=== PATIENT | male | born 1960 | race Caucasian/White ===

== ENCOUNTER → 2019-03-14 | Outpatient (CLI) | payer MEDICAID, SELFPAY | PROVIDERS: Family Provider Family Medicine; Visit Provider Internal Medicine Hematology & Oncology | DX: Z08 Encounter for follow-up examination after completed treatment for malignant neoplasm (principal); Z85.09 Personal history of malignant neoplasm of other digestive organs; R10.13 Epigastric pain; K74.0 Hepatic fibrosis; Z92.3 Personal history of irradiation; Z92.21 Personal history of antineoplastic chemotherapy; Z79.891 Long term (current) use of opiate analgesic | CPT/HCPCS: 80053; 85025; 99214 ==

== ENCOUNTER → 2019-04-03 13:00 | Outpatient (BNVA) | payer MEDICAID, SELFPAY | PROVIDERS: Family Provider Family Medicine; PCP Family Medicine; Visit Provider Anesthesiology Pain Medicine | DX: R10.13 Epigastric pain (principal); R10.9 Unspecified abdominal pain; F17.210 Nicotine dependence, cigarettes, uncomplicated | CPT/HCPCS: 99203; 99999 ==

== ENCOUNTER 2019-04-19 09:14 | Emergency (ER) | payer MEDICAID, SELFPAY ==
[2019-04-19] VITALS (10 sets, daily range): BP systolic 84–124; BP diastolic 45–82; PULSE 100–109; RESP 12–21; TEMP 36.8–37.3; O2SAT 96–100; BMI 19.2
--- NOTE | 2019-04-19 09:16 | ED_ITS ---
Entered by Tessy Stoll, acting as scribe for HPI - General Adult General: Chief complaint: General Medical Stated complaint: RESP DISTRESS POST CODE Time Seen by Provider: 04/19/19 09:16 Source: family and EMS Mode of arrival: EMS History of Present Illness: HPI narrative: 58-year-old male with a history of liver cancer was found down. Patient had temporary airway placed. He has had blood in his stool. Patient per family complained of some vomiting and chest pain before he went down. Here he is not responsive. Onset (ago): hour(s) (2 am) Severity: severe Relieving factors: none Exacerbating factors: none Associated symptoms: Reports short of breath and weakness (per mother) Treatments prior to arrival: other (EMS did CPR) Review of Systems General: Reports: ROS unobtainable due to mental status PFSH ED PFSH: Statuses (acute, chronic, etc) shown below reflect problem list status as previously entered and may not be historically accurate Medical History Abdominal pain, epigastric (Acute) Hx of malignant neoplasm of gallbladder (Acute) Malignant neoplasm of liver, not specified as primary or secondary (Acute) Surgical History Hx of resection of liver (Acute) 04/2018 S/P biliary surgery (Acute) BILE DUCT STENT 05/2018, 07/2018 REPLACED S/P cholecystectomy (Acute) 02/2018 [facility] Family History Denies family history of Diabetes Clotting disorder Dementia Hyperlipidemia Psychiatric illness Suicide Anesthesia complication Bleeding disorder Lung disease Hypertension Stroke Social History Smoking and tobacco status: current every day smoker cigarettes Packs smoked per day: 0.5 Years cigarettes smoked: 20 Alcohol intake: never Caregiver/support person: Yes Lives independently: Yes Household members: family Physical Exam Const: COMMON NORMALS: negative for alert EXAM LIMITATIONS: altered mental status GENERAL APPEARANCE: disheveled, ill appearing and frail appearing ORIENTATION/CONSCIOUSNESS: not oriented to person HENMT: COMMON NORMALS: normocephalic HEAD & SCALP: normocephalic Eye: COMMON NORMALS: PERRL PUPIL: Yes PERRL Neck/C-Spine: COMMON NORMALS: no lymphadenopathy and supple Chest: COMMONS NORMALS: inspection of chest normal and palpation of chest normal Resp: OTHER: not breathing on his own. has a supraglotic device in place Cardio: COMMON NORMALS: regular rate and regular rhythm RATE: regular rate RHYTHM: regular rhythm GI: COMMON NORMALS: normal to inspection, nondistended, normoactive bowel sounds, soft to palpation, non-tender and no hepatosplenomegaly PALPATION: Yes soft and Yes no hepatosplenomegaly : OTHER: rectal exam positive for blood Extremity: COMMON NORMALS: normal to inspection and full ROM Neuro: COMMON NORMALS: negative for moves all extremities SENSORIUM/ORIENTATION: No alert and No oriented to person Psych: COMMON NORMALS: negative for mental status grossly normal Skin: COMMON NORMALS: no rashes or lesions noted GENERAL SKIN EXAM: no rashes or lesions noted Procedures Intubation sedative: Etomidate Mg Given: 20 paralytic: Succinylcholine Mg Given: 100 Laryngoscope: fiber optic video scope ET Tube Size: 8 ET Tube Uncuffed: No Tube Secured Depth (cm): 25 Tube Secured Location: teeth Tube Placement Confirmation: visualized tube passing through cords, equal breath sounds bilaterally and confirmation by capnometry Patient Tolerated Procedure: well Intubation Complications: none Course Vital Signs: Vital signs: Vital Signs Temperature 98.8 F 04/19/19 11:13 Pulse Rate 100 04/19/19 11:13 Respiratory Rate 21 H 04/19/19 11:13 Blood Pressure 89/52 04/19/19 11:10 Pulse Oximetry 96 04/19/19 11:13 MDM - General Adult MDM Narrative: Medical decision making narrative: Patient presents here with upper GI bleed with anemia and hypotension likely from that. Patient also had respiratory failure I did intubate him in the ER. Patient's blood pressure here is improving after fluids and blood products. I spoke to [facility] and will transfer there for higher level of care as patient possibly has esophageal varices as well and needs GI as we do not have GI. Patient will stable for for transfer. Lab Data: Labs: Lab Results 04/19/19 04/19/19 04/19/19 Range/Units 09:22 09:22 09:22 WBC 11.5 H (4.0-10.0) 10^3/ uL RBC 1.73 L (4.1-5.3) 10^6/u L Hgb 5.8 L* (11.7-16.6) g/dL Hct 19.7 L* (42.0-52.0) % MCV 113.9 H (80-94) fL MCH 33.5 (28.0-34.0) pg MCHC 29.4 L (30.0-36.0) g/dL RDW 19.2 H (12.1-15.1) % Plt Count 249 (130-400) 10^3/c mm MPV 9.4 (7.4-10.4) fL Neut % (Auto) 78.3 % Lymph % (Auto) 9.4 % Mcnairy % (Auto) 5.3 % Eos % (Auto) 0.3 % Baso % (Auto) 0.2 % Neut # (Auto) 9.0 H (1.8-7.7) 10^3/u L Lymph # (Auto) 1.1 (0.8-4.8) 10^3/u L Mcnairy # (Auto) 0.6 (0.2-0.9) 10^3/u L Eos # (Auto) 0.0 (0.0-0.8) 10^3/u L Baso # (Auto) 0.0 (0.0-0.1) 10^3/u L Nucleated RBC % (a uto) 0.2 % Nucleated RBCs # 0.0 /100WBC PT 19.00 H (10.5-13.3) SECO NDS INR 1.54 H (0.8-1.2) Specimen Type Sample Site ABG pH (7.35-7.45) ABG pCO2 (35-45) mmHg ABG pO2 (80.0-100.0) mmH g ABG HCO3 (22-26) mmol/L Ervin Test Respiration Rate % O2 Delivery Device FiO2 % Tidal Volume PEEP cmH20 Industrial Hygenist ID Sodium 137 (136-145) mmol/L Potassium 4.5 (3.5-5.1) mmol/L Chloride 101 (98-107) mmol/L Carbon Dioxide 10 L (22-29) mmol/L Anion Gap 30.5 H (5-19) BUN 35 H (8-23) mg/dL Creatinine 1.0 (0.7-1.2) mg/dL GFR Calculation 76.2 L (90-130) mL/min Glucose 208 H (74-106) mg/dL Lactate (0.5-2.2) mmol/L Calcium 7.9 L (8.5-10.5) mg/dL Total Bilirubin 0.2 (0.15-1.2) mg/dL AST 107 H (0-40) U/L ALT 67 H (0-41) U/L Alkaline Phosphata se 201 H (40-130) IU/L Troponin T Baselin e (0-15) ng/mL NT-Pro-B Natriuret Pep 623 H (0-125) pg/mL Total Protein 3.3 L (6.6-8.7) g/dL Albumin 1.7 L (3.5-5.2) g/dL Globulin 1.6 (1.3-4.6) g/dL Urine Color (Yellow) Urine Appearance (CLEAR) Urine pH (5-7) Ur Specific Gravit y (1.005-1.030) Urine Protein (Negative) Urine Glucose (UA) (Normal) Urine Ketones (Negative) Urine Occult Blood (Negative) Urine Nitrate (Negative) Urine Bilirubin (NEGATIVE) Urine Urobilinogen (Negative) mg/dL Ur Leukocyte Nurys ase (Negative) Urine RBC (0-2) /hpf Urine WBC (0-5) /hpf Ur Squamous Epith Cells (0-5) Urine Bacteria (NONE) Urine Mucus Urine Opiates Scre en (Negative) ng/mL Ur Barbiturates Sc reen (Negative) ng/mL Ur Phencyclidine S crn (Negative) ng/mL Ur Amphetamines Sc reen (Negative) ng/mL U Benzodiazepines Scrn (Negative) ng/mL Urine Cocaine Scre en (Negative) ng/mL U Marijuana (THC) Screen (Negative) ng/mL Blood Type Antibody Screen Crossmatch 04/19/19 04/19/19 04/19/19 Range/Units 09:22 09:22 09:39 WBC (4.0-10.0) 10^3/ uL RBC (4.1-5.3) 10^6/u L Hgb (11.7-16.6) g/dL Hct (42.0-52.0) % MCV (80-94) fL MCH (28.0-34.0) pg MCHC (30.0-36.0) g/dL RDW (12.1-15.1) % Plt Count (130-400) 10^3/c mm MPV (7.4-10.4) fL Neut % (Auto) % Lymph % (Auto) % Mcnairy % (Auto) % Eos % (Auto) % Baso % (Auto) % Neut # (Auto) (1.8-7.7) 10^3/u L Lymph # (Auto) (0.8-4.8) 10^3/u L Mcnairy # (Auto) (0.2-0.9) 10^3/u L Eos # (Auto) (0.0-0.8) 10^3/u L Baso # (Auto) (0.0-0.1) 10^3/u L Nucleated RBC % (a uto) % Nucleated RBCs # /100WBC PT (10.5-13.3) SECO NDS INR (0.8-1.2) Specimen Type Sample Site ABG pH (7.35-7.45) ABG pCO2 (35-45) mmHg ABG pO2 (80.0-100.0) mmH g ABG HCO3 (22-26) mmol/L Ervin Test Respiration Rate % O2 Delivery Device FiO2 % Tidal Volume PEEP cmH20 Industrial Hygenist ID Sodium (136-145) mmol/L Potassium (3.5-5.1) mmol/L Chloride (98-107) mmol/L Carbon Dioxide (22-29) mmol/L Anion Gap (5-19) BUN (8-23) mg/dL Creatinine (0.7-1.2) mg/dL GFR Calculation (90-130) mL/min Glucose (74-106) mg/dL Lactate 16.8 H* (0.5-2.2) mmol/L Calcium (8.5-10.5) mg/dL Total Bilirubin (0.15-1.2) mg/dL AST (0-40) U/L ALT (0-41) U/L Alkaline Phosphata se (40-130) IU/L Troponin T Baselin e 25 H (0-15) ng/mL NT-Pro-B Natriuret Pep (0-125) pg/mL Total Protein (6.6-8.7) g/dL Albumin (3.5-5.2) g/dL Globulin (1.3-4.6) g/dL Urine Color (Yellow) Urine Appearance (CLEAR) Urine pH (5-7) Ur Specific Gravit y (1.005-1.030) Urine Protein (Negative) Urine Glucose (UA) (Normal) Urine Ketones (Negative) Urine Occult Blood (Negative) Urine Nitrate (Negative) Urine Bilirubin (NEGATIVE) Urine Urobilinogen (Negative) mg/dL Ur Leukocyte Nurys ase (Negative) Urine RBC (0-2) /hpf Urine WBC (0-5) /hpf Ur Squamous Epith Cells (0-5) Urine Bacteria (NONE) Urine Mucus Urine Opiates Scre en (Negative) ng/mL Ur Barbiturates Sc reen (Negative) ng/mL Ur Phencyclidine S crn (Negative) ng/mL Ur Amphetamines Sc reen (Negative) ng/mL U Benzodiazepines Scrn (Negative) ng/mL Urine Cocaine Scre en (Negative) ng/mL U Marijuana (THC) Screen (Negative) ng/mL Blood Type O Positive Antibody Screen Negative Crossmatch See Detail 04/19/19 04/19/19 04/19/19 Range/Units 09:43 09:45 09:45 WBC (4.0-10.0) 10^3/ uL RBC (4.1-5.3) 10^6/u L Hgb (11.7-16.6) g/dL Hct (42.0-52.0) % MCV (80-94) fL MCH (28.0-34.0) pg MCHC (30.0-36.0) g/dL RDW (12.1-15.1) % Plt Count (130-400) 10^3/c mm MPV (7.4-10.4) fL Neut % (Auto) % Lymph % (Auto) % Mcnairy % (Auto) % Eos % (Auto) % Baso % (Auto) % Neut # (Auto) (1.8-7.7) 10^3/u L Lymph # (Auto) (0.8-4.8) 10^3/u L Mcnairy # (Auto) (0.2-0.9) 10^3/u L Eos # (Auto) (0.0-0.8) 10^3/u L Baso # (Auto) (0.0-0.1) 10^3/u L Nucleated RBC % (a uto) % Nucleated RBCs # /100WBC PT (10.5-13.3) SECO NDS INR (0.8-1.2) Specimen Type Arterial Sample Site Brachial, right ABG pH 7.00 L* (7.35-7.45) ABG pCO2 23.1 L (35-45) mmHg ABG pO2 70.3 L (80.0-100.0) mmH g ABG HCO3 5.7 L (22-26) mmol/L Ervin Test N/a Respiration Rate 18.0 % O2 Delivery Device Vent FiO2 100.0 % Tidal Volume 0.4 PEEP 8.0 cmH20 Industrial Hygenist ID amh Sodium (136-145) mmol/L Potassium (3.5-5.1) mmol/L Chloride (98-107) mmol/L Carbon Dioxide (22-29) mmol/L Anion Gap (5-19) BUN (8-23) mg/dL Creatinine (0.7-1.2) mg/dL GFR Calculation (90-130) mL/min Glucose (74-106) mg/dL Lactate (0.5-2.2) mmol/L Calcium (8.5-10.5) mg/dL Total Bilirubin (0.15-1.2) mg/dL AST (0-40) U/L ALT (0-41) U/L Alkaline Phosphata se (40-130) IU/L Troponin T Baselin e (0-15) ng/mL NT-Pro-B Natriuret Pep (0-125) pg/mL Total Protein (6.6-8.7) g/dL Albumin (3.5-5.2) g/dL Globulin (1.3-4.6) g/dL Urine Color Yellow (Yellow) Urine Appearance Sl hazy (CLEAR) Urine pH 5.0 (5-7) Ur Specific Gravit y 1.015 (1.005-1.030) Urine Protein 1+ H (Negative) Urine Glucose (UA) Norm (Normal) Urine Ketones 1+ H (Negative) Urine Occult Blood 2+ H (Negative) Urine Nitrate Negative (Negative) Urine Bilirubin 1+ H (NEGATIVE) Urine Urobilinogen Norm (Negative) mg/dL Ur Leukocyte Nurys ase Negative (Negative) Urine RBC 10-15 H (0-2) /hpf Urine WBC 0-4 H (0-5) /hpf Ur Squamous Epith Cells 0-4 H (0-5) Urine Bacteria 2+ H (NONE) Urine Mucus Trace Urine Opiates Scre en Negative (Negative) ng/mL Ur Barbiturates Sc reen Negative (Negative) ng/mL Ur Phencyclidine S crn Negative (Negative) ng/mL Ur Amphetamines Sc reen Negative (Negative) ng/mL U Benzodiazepines Scrn Negative (Negative) ng/mL Urine Cocaine Scre en Negative (Negative) ng/mL U Marijuana (THC) Screen Positive H (Negative) ng/mL Blood Type Antibody Screen Crossmatch Critical Care Time Critical Care Time: Critical Care Time: Yes Total Critical Care Time: 35 Attestation: Critical care time was performed taking care of this patient. Patient was quite ill with massive GI bleed that required blood products. Patient required intubation as well had a monitor patient's blood pressures as he was hypotensive and monitor vent settings. Patient transferred to [facility] where I discussed case with physician over there for higher level of care for GI. Discharge Plan Discharge Patient Disposition: Xfer Other Clinical Impression: Hx of malignant neoplasm of gallbladder, Acute upper gastrointestinal bleeding, Anemia, Respiratory failure Condition: Stable Referrals: Navi Loja DO [Primary Care Provider] - Coding Level of Care Code ED Retail Administrative Assistant for Chg Fwd The documentation recorded by the Jerman werner Bridget Annette, accurately reflects the service I personally performed and the decisions made by me, Home Peterson MD Apr 19, 2019 09:14
--- NOTE | 2019-04-19 09:18 | CT_ITS ---
WS: [id number] CT scan of the chest for pulmonary embolus. Additional two-dimensional coronal and sagittal reconstru ction was performed. MIP images were also performed. 04/19/2019 Clinical Data: cp Comparison: CTA chest with abdomen and pelvis, 07/16/2018, MRI of the abdomen, 12/13/2018. DLP: 1228.[address] scans at [facility] use at least one of these dose optimization techniques: automat ed exposure control; mA and/or kV adjustment per patient size (includes targeted exams where dose is matched to clinical indication); or iterative reconstruction. Findings: The pulmonary arteries demonstrate no intraluminal filling defects. Both the central and peripheral a rteries are well filled. There is a nasogastric tube and endotracheal tube in good position. The heart size is normal. There is enlargement of the ascending aorta unchanged. No nodules or masses are seen. There is no axillary or mediastinal adenopathy. The bony thorax shows only moderate osteoa rthritic change with no metastatic bony lesions. CT abdomen and pelvis: FINDINGS: There is a cyst in the anterior aspect of the right lobe of the liver. There are other area s of the liver which represent lesions which have been treated. No new enhancing lesions in liver can be seen. The gallbladder is absent. There is a tube which extends from the liver to the duodenum. Th e pancreas and the adrenal glands are not remarkable. The spleen is normal. The left kidney is absent . The right kidney demonstrates normal enhancement with no cysts, masses or hydronephrosis. Abdominal aorta is normal. Stomach is dilated with an air-fluid level. The small bowel shows fluid within and moderate dilatation which can be seen with a severe generalized ileus or early small bowel obstructio n. The colon is not dilated but the wall is thickened and unchanged. There is a catheter within the b ladder. No metastatic lesions are seen in the lumbar spine, pelvis and hips. CT/CT angio chest w abd pel w con Impression: 1. Negative for pulmonary embolic disease. 2. Nasogastric tube and endotracheal tube in good position. IMPRESSION: 1. Dilated stomach with nasogastric tube. 2. Moderately dilated small bowel with fluid which could indicate diffuse small bowel disease and generalized ileus. 3. Enlarged colonic pearce which could be secondary to diffuse colitis. 4. Cyst of the liver and treated lesions of the liver remain unchanged. 5. Negative for abscess, adenopathy, ascites, mass, obstruction or free air. 6. Satisfactory position of nasogastric tube in the stomach and no change in po sition of tube extending from the liver to the duodenum.
--- NOTE | 2019-04-19 09:18 | XR_ITS ---
WS: [id number] Portable AP supine chest, 04/19/2019 Clinical Data: cp Comparison: None. Findings: The endotracheal tube is above the baljeet. The heart and lungs are unremarkable. The patien t is had an abdominal stent placed on the right which may extend from the liver to the small bowel. T here are also clips in the right upper quadrant from gallbladder surgery. XR/XR chest 1V portable [id number] Impression: Satisfactory placement of endotracheal tube.
--- NOTE | 2019-04-19 09:18 | CT_ITS ---
WS: [id number] CT scan of the head, 04/19/2019 Clinical Data: ams Comparison: None. DLP: 871.[address] scans at [facility] use at least one of these dose optimization techniques: automat ed exposure control; mA and/or kV adjustment per patient size (includes targeted exams where dose is matched to clinical indication); or iterative reconstruction. Findings: The ventricular system is normal without shift. No recent infarct or hemorrhage is seen. There are no abnormal intracerebral masses. The cerebellum and brainstem are not remarkable. Bony windows of the skull and skull base show no fractures or erosions. The mastoid air cells, summer intern al auditory canals, sella turcica, intraorbital contents, and paranasal sinuses are unremarkable. CT/CT head wo con* [id number] Impression: Negative CT scan of the head
--- NOTE | 2019-04-19 09:19 | ECG_ITS ---
Measurements Intervals [place] Rate: 90 P: 79 LA: 180 QRS: 78 QRSD: 98 T: 65 QT: 377 QTc: 463 SINUS RHYTHM POSSIBLE LEFT ATRIAL ENLARGEMENT [-0.1mV P WAVE IN V1/V2] Compared to ECG 07/17/2018 00:13:01 Sinus tachycardia no longer present Electronically Signed On 04-19-2019 15:55:31 MOTOR AND CONTROLS TESTER by Cornel Michaels M.D. [email or web address]
[2019-04-19 09:30] LABS: Basophils % 0.2 %; Eosinophils % 0.3 %; Lymphocytes # 1.1 10^3/uL (0.8-4.8); Lymphocytes % 9.4 %; Mean Corpuscular HGB Conc 29.4 g/dL (30.0-36.0); Mean Corpuscular Hemoglobin 33.5 pg (28.0-34.0); Mean Corpuscular Volume 113.9 fL (80-94); Mean Platelet Volume 9.4 fL (7.4-10.4); Monocytes # 0.6 10^3/uL (0.2-0.9); Monocytes % 5.3 %; Neutrophils % 78.3 %; Nucleated Red Blood Cells % 0.2 %; Platelet Count 249 10^3/cmm (130-400); Positive C 1; Positive M 1; Red Blood Count 1.73 10^6/uL (4.1-5.3); Red Cell Distribution Width 19.2 % (12.1-15.1); White Blood Count 11.5 10^3/uL (4.0-10.0)
[2019-04-19 09:40] LABS: INR 1.54 (0.8-1.2)
[2019-04-19 09:52] LABS: Troponin(5th) Baseline 25 ng/mL (0-15)
[2019-04-19 09:53] LABS: ABG PCO2 23.1 mmHg (35-45); Blood Gas Operator Identificat amh; Blood Gas Sample Site Brachial, right; Blood Gas Sample Type Arterial; Blood Gas Tidal Volume 0.4; HCO3 ABG 5.7 mmol/L (22-26); Oxygen Device VENT; PO2 ABG 70.3 mmHg (80.0-100.0)
[2019-04-19 09:53] LABS: Hematocrit 19.7 % (42.0-52.0); Hemoglobin 5.8 g/dL (11.7-16.6); Slide Review Slide Review Perform
[2019-04-19 09:55] LABS: Alanine Aminotransferase 67 U/L (0-41); Albumin Level 1.7 g/dL (3.5-5.2); Alkaline Phosphatase 201 IU/L (40-130); Anion Gap 30.5 (5-19); Blood Urea Nitrogen 35 mg/dL (8-23); Calcium 7.9 mg/dL (8.5-10.5); Carbon Dioxide 10 mmol/L (22-29); Chloride 101 mmol/L (98-107); Creatinine Clr Calc Pharmacy 73.3409; Globulin 1.6 g/dL (1.3-4.6); Glomerular Filtration Rate 76.2 mL/min (90-130); Glucose 208 mg/dL (74-106); NT Pro B Type Natriuretic Pept 623 pg/mL (0-125); Potassium 4.5 mmol/L (3.5-5.1); Sodium 137 mmol/L (136-145); Total Bilirubin 0.2 mg/dL (0.15-1.2); Total Protein 3.3 g/dL (6.6-8.7)
[2019-04-19 10:11] LABS: Lactate (Lactic Acid level) 16.8 mmol/L (0.5-2.2)
[2019-04-19 10:11] LABS: Blood Urine 2+ (Negative); Glucose Urine UA Norm (Normal); Ketones Urine 1+ (Negative); Nitrate Urine Negative (Negative); Protein Urine 1+ (Negative); Specific Gravity, Urine 1.015 (1.005-1.030); Urine Appearance SL Hazy (CLEAR); Urine Color Yellow (Yellow); Urobilinogen Urine Norm (Negative)
[2019-04-19 10:12] LABS: Add Urine Microscopic? YES; Bilirubin Urine 1+ (NEGATIVE); Leukocyte Esterase Urine Negative (Negative)
[2019-04-19 10:19] LABS: Add Urine Culture? Yes; Bacteria Urine 2+; Mucus Urine TRACE; Squamous Epithelial Cell Urine 0-4 (0-5); WBC Urine 0-4 /hpf (0-5)
[2019-04-19 10:26] LABS: Amphetamines Screen Urine Negative (Negative); Barbiturates Screen Urine Negative (Negative); Benzodiazepines Screen Urine Negative (Negative); Cocaine Screen Urine Negative (Negative); Opiate Screen Urine Negative (Negative); PCP Screen Urine Negative (Negative); THC Screen Urine Positive (Negative)
[2019-04-19] MEDS: iohexol 350 mg/mL 100 mL Btl 95 ML IV (10:43)
[2019-04-19 10:55] LABS: Aspartate Amino Transferase 107 U/L (0-40)
[2019-04-19] MEDS: pantoprazole 40 mg SDV 80 MG IVP (11:08)
[2019-04-19] MEDS: pantoprazole 40 MG in sodium chloride 0.9% (plus) 100 ML 20 MG IV (11:08)
[2019-04-19] MEDS: midazolam 1 mg/mL INJ 2 mL 2 MG IVP (11:17)
--- NOTE | 2019-04-19 11:19 | ECG_ITS ---
Measurements Intervals [place] Rate: 107 P: 83 MT: 162 QRS: 75 QRSD: 73 T: 64 QT: 328 QTc: 439 SINUS TACHYCARDIA WITH OCCASIONAL SUPRAVENTRICULAR PREMATURE COMPLEXES ABNORMAL RHYTHM ECG Compared to ECG 07/17/2018 00:13:01 No significant changes Electronically Signed On 04-19-2019 15:59:37 CERTIFIED MEDICAL CODING SPECIALIST by Cornel Michaels M.D. [email or web address]
[2019-04-19] MEDS: succinylcholine 20 mg/mL SDV 10mL 100 MG IVP (11:34)
[2019-04-19] MEDS: sodium chloride 0.9% 1,000 ML 999 ML IV (11:35)
[2019-04-19] MEDS: octreotide 100 mcg/mL SDV 50 MCG IVP (11:36)
[2019-04-19] MEDS: midazolam 1 mg/mL INJ 2 mL 2 MG (11:37)
== END 2019-04-19 11:15 | disposition other institution (70) ==
PROVIDERS: Emergency Provider Emergency Medicine; Family Provider Family Medicine; PCP Family Medicine
DX: J96.90 Respiratory failure, unspecified, unspecified whether with hypoxia or hypercapnia (principal); K92.2 Gastrointestinal hemorrhage, unspecified; D64.9 Anemia, unspecified; Z85.89 Personal history of malignant neoplasm of other organs and systems; Z85.05 Personal history of malignant neoplasm of liver; F17.210 Nicotine dependence, cigarettes, uncomplicated
CPT/HCPCS: 31500; 36415; 36430; 36600; 51702; 70450; 71045; 71275; 74177; 80053; 80307; 81001; 82803; 83605; 83880; 84484; 85025; 85610; 86850; 86900; 87040; 87086; 93005; 94002; 94799; 96360; 96365; 96374; 96375; 99284; 99285; 99291; C9113; J0330; J2250; J2354; J3010; J3490; J7030; J7050; P9016; Q9967